=== PATIENT | female | born 1965 | race Caucasian/White ===

== ENCOUNTER 2019-10-03 14:34 | Emergency (ER) | payer OTHER, SELFPAY ==
[2019-10-03 14:43] VITALS: BP 159/92; PULSE 78; RESP 16; TEMP 36.5; O2SAT 98
--- NOTE | 2019-10-03 15:05 | ED.URI ---
HPI - URI/Sore Throat General Chief Complaint: Upper Respiratory Infection Stated Complaint: head congestion/cough Time Seen by Provider: 10/03/19 14:50 Source: patient and RN notes reviewed Mode of arrival: ambulatory Limitations: no limitations History of Present Illness HPI Narrative: Patient presents today with a 2-day history of nasal congestion and cough. States symptoms began when she was outside in her yard. Reports the congestion is better today, but the cough is worse. On her way to the urgent care today, she got a flat tire. Reports her cough worsened as she was sitting in her car with the windows rolled down. Denies history of seasonal allergies. Denies any history of asthma or COPD. Denies any history of fever, shortness of breath, sore throat, loss of taste or smell. She has been taking Mucinex without relief. States her mother is undergoing chemo and she has a grandchild without an immune system and is requesting COVID-19 testing today. MD elicited complaint: cough Related Data Home Medications Medication Instructions Recorded Confirmed No Home Medications 10/03/19 10/03/19 Allergies Allergy/AdvReac Type Severity Reaction Status Date / Time Sulfa (Sulfonamide Allergy Unknown Verified 10/03/19 14:42 Antibiotics) Review of Systems Review of Systems: Narrative: CONSTITUTIONAL: Denies body aches, fever, chills, or sweats. EYES: Denies visual changes, redness, or discharge. ENT: Denies rhinorrhea, sore throat, or otalgia.+ Congestion, postnasal drip CARDIOVASCULAR: Denies chest pain, palpitations, or edema. RESPIRATORY: Denies dyspnea.+ Cough GASTROINTESTINAL: Denies abdominal pain, nausea, vomiting, or diarrhea. GENITOURINARY: Denies dysuria or hematuria. SKIN: Denies rash, itching, or wounds. MUSCULOSKELETAL: Denies back pain, joint pain, or myalgia. NEUROLOGIC: Denies headache, numbness, tingling, or weakness. PSYCH: Denies depression or anxiety. PMFSH Comments At time of signature, I have reviewed and agree with nursing past medical, surgical, social and family history unless otherwise noted. Please see nursing chart for further information. There is no relevant family history pertinent to the presenting complaint Exam Narrative: Exam Narrative: GENERAL: Well-appearing, well-nourished, and in no acute distress. HEAD: Normocephalic, atraumatic. EYES: EOMI. No redness or drainage. Conjunctivae normal. ENT: Mucous membranes pink and moist. Nares congested with clear drainage. Bilateral swollen nasal turbinates. Bilateral middle ear fluid collection without evidence of infection. Throat normal. Uvula midline. NECK: Normal AROM. Supple. No lymphadenopathy. CHEST: No respiratory distress. Clear to auscultation. HEART: Regular rate and rhythm. No murmur appreciated. Normal peripheral pulses. EXTREMITIES: Normal range of motion. No edema. SKIN: Warm, dry, no rash. Capillary refill normal. Normal skin turgor. NEURO: No focal deficits. Alert and oriented x3. Gait steady. PSYCH: Normal affect. No signs of depression or anxiety. Course Vital Signs Vital signs: Vital Signs Temperature 97.7 F 10/03/19 14:43 Pulse Rate 78 10/03/19 14:43 Respiratory Rate 16 10/03/19 14:43 Blood Pressure 159/92 H 10/03/19 14:43 Pulse Oximetry 98 10/03/19 14:43 Temperature 97.7 F 10/03/19 14:43 Pulse Rate 78 10/03/19 14:43 Respiratory Rate 16 10/03/19 14:43 Blood Pressure 159/92 H 10/03/19 14:43 Pulse Oximetry 98 10/03/19 14:43 Reviewed. Pt has been instructed to follow up with her PCP regarding her elevated blood pressure today. MDM - URI/Sore Throat Differential Diagnosis Differential diagnosis: Likely upper respiratory infection, otitis media, sinusitis, viral infection, bronchitis and other (Seasonal allergies, allergic rhinitis) Critical Care Time Critical Care Time Critical Care Time: No Discharge Plan Discharge Clinical Impression: Seasonal allergies
== END 2019-10-03 15:11 | disposition home or self-care (01) ==
PROVIDERS: Emergency Provider Nurse Practitioner; PCP Internal Medicine
DX: J30.2 Other seasonal allergic rhinitis (principal); Z20.828 Contact with and (suspected) exposure to other viral communicable diseases
CPT/HCPCS: 99211; G0463

== ENCOUNTER 2024-05-25 02:16 | Day surgery (SDC) | payer OTHER, SELFPAY ==
[2024-05-17 13:55] VITALS: BMI 34.9
--- OUTSIDE RECORDS SUMMARY | 2024-05-25 02:21 | XMS_ITS | Clinical Summary ---
Author Organization [facility] Address [facility] [place] [address] Care Team Providers Care Sales Solutions Associate Name Role Phone Randa Garnett Primary Care Provider [phone] Allergies Active Allergy Reactions Criticality Noted Date Comments Sulfa Antibiotics Rash Low 03/29/2019 Medications amLODIPine-purnima zepril 5-20 MG capsule Take 1 capsule by mouth daily. 07/22/2021 Active pravastatin 20 MG tablet Take 20 mg by mouth nightly at bedtime. 07/12/2021 Active Active Problems Problem Noted Date Diagnosed Date Essential (primary) hypertension 09/14/2021 Hyperlipidemia, mixed 09/14/2021 Encounters Date Type Department Care Team Description 04/30/2024 3:16 PM PROTECTIVE SIGNAL REPAIRER - 04/30/2024 11:59 PM [facility] Hospital Encounter [facility] [address] [place] [address] Randa Garnett PA Discharge Disposition: Home or Self Care (Routine Discharge) 04/30/2024 Travel from Last 3 Months Family History Medical History Relation Comments Heart Attack Father Open Heart Father Valve Disease Father cardiac stents Father Breast Cancer Neg Hx Relation Status Comments Father Alive Maternal Grandfather Maternal Grandmother Mother Alive Paternal Grandfather Paternal Grandmother Sister Alive Social History Tobacco Use Types Packs/Day Years Used Date Smoking Tobacco: Never Smokeless Tobacco: Never Alcohol Use Standard Drinks/Week Comments Yes 5 (1 standard drink = 0.6 oz pur e alcohol) socially Comments No Sex and Gender Information Value Date Recorded Sex Assigned at Not on file Legal Sex Female 8:02 AM CDT Gender Identity Not on file Sexual Orientation Not on file Last Filed Vital Signs Vital Sign Reading Time Taken Comments Blood Pressure 156/100 09/14/2021 11:23 AM CDT Pulse 94 09/14/2021 11:23 AM CDT Temperature 36.3 C (97.4 F) 07/29/2021 5:18 AM CDT Respiratory Rate 16 07/29/2021 7:00 AM CDT Oxygen Saturation 96% 07/29/2021 7:00 AM CDT Inhaled Oxygen Concentration - - Weight 87.1 kg (192 lb) 09/14/2021 11:23 AM CDT Height 157.5 cm (5' 2 ) 09/14/2021 11:23 AM CDT Body Mass Index 35.12 09/14/2021 11:23 AM CDT Plan of Treatment Health Maintenance Due Date Last Done Comments Cervical Cancer Screening Pap Smear (Age 30 to 64) Every 3 Years 1963 Colorectal Cancer Screening Colonoscopy (10 Years) 1963 Annual Physical 12/25/1966 Hepatitis C 12/25/1981 DTaP, Tdap and Td Vaccines (1 - Tdap) 12/25/1982 Cervical Cancer Screening Pap with HPV Testing (Age 30 to 64) Every 5 Years 12/25/1993 Cervical Cancer Screening with HPV 12/25/1993 Zoster Vaccines (1 of 2) 12/25/2013 COVID-19 Vaccine (3 season) 2023 07/18/2020, 06/27/2020 Influenza Adult (#1) 2023 01/20/2020 Mammogram Screening 04/30/2026 04/30/2024, 04/29/2023, 02/17/2022, Additional history exists RSV Immunization or 60+ Years (1 - 1-dose 75+ series) 12/25/2038 Meningococcal B Vaccine Aged Out No l onger eligible based on patient's age to complete this topic Meningococcal Vaccine Aged Out No estevan dante eligible based on patient's age to complete this topic Pneumococcal Vaccine: Pediatrics (0 to 5 Years) and At-Risk Patients (6 to 64 Years) Aged Out No longer eligible based on patient's age to complete this topic RSV Immunizations Under 20 Months Aged Out No longer eligible based on patient's age to complete this topic Procedures Procedure Name Priority Date/Time Associated Diagnosis Comments MG SCREENING W ANTOINETTE DUSTY DIGI Routine 04/30/2024 3:53 PM PROTECTIVE SIGNAL REPAIRER Encounter for screening mammogram for malignant neoplasm of breast from Last 3 Months Results * MG SCREENING W ANTOINETTE DUSTY DIGI (04/30/2024 3:53 PM PROTECTIVE SIGNAL REPAIRER) Anatomical Region Laterality Modality Breast Bilateral Mammography 05/01/2024 3:59 PM PROTECTIVE SIGNAL REPAIRER Impressions 05/01/2024 4:16 PM PROTECTIVE SIGNAL REPAIRER ===== IMPRESSION: ===== 1. Stable mammographic appearance with no new findings to suggest malignancy in either breast. Assessment: ACR BI-RADS 1 - NEGATIVE Recommendation: 1:Routine Screening Bilateral Comments: Ordered By: RANDA GARNETT Interpreted By: Neo Oneill, 05/01/2024 3:59 PM Narrative 05/01/2024 4:16 PM PROTECTIVE SIGNAL REPAIRER [facility] [address] [place] [address] EXAMINATION: Digital bilateral screening mammogram with 3-D tomosynthesis EXAM DATE/TIME: 04/30/2024 3:25 PM REASON FOR EXAM: yealry screen COMPARISON: 02/17/2022. 04/29/2023 Technique: Digital screening mammography of both breasts was performed in addition to 3-D Tomosynthesis technique. This study was read with the assistance of a computer-aided detection system. Tissue density: The breasts are almost entirely fatty. Findings: There is no new focal asymmetry, dominant mass lesion, area of skin thickening, or cluster of suspicious appearing calcifications in either breast to suggest malignancy. Stable benign lymph node in upper outer quadrant of the right breast Randa [facility]D M[facility] Final Result from Last 3 Months Insurance [facility] Care Teams Sales Solutions Associate Relationship Specialty Start Date End Date Randa Garnett PA [address] [place] [id number] PCP - General PHYSICIAN PAPERHANGER 02/17/22
--- OUTSIDE RECORDS SUMMARY | 2024-05-25 02:21 | XMS_ITS | Encounter Summary ---
Author Organization [facility] Address [address] [place] [id number] Care Team Providers Care Reuse Technician Name Role Phone Michael Alexander MD Primary Care Provider [phone] Randa Garnett Primary Care Provider Encounter Details Date Type Department Care Team (Late st Contact Info) Description 08/13/2021 [facility] [address] [place] Castro [place] Social History Tobacco Use Types Packs/Day Years Used Date Smoking Tobacco: Never Smokeless Tobacco: Never Alcohol Use Standard Drinks/Week Comments Yes 0 (1 standard drink = 0.6 oz pur e alcohol) socially Comments No Sex and Gender Information Value Date Recorded Sex Assigned at Not on file Legal Sex Female 8:02 AM CDT Gender Identity Not on file Sexual Orientation Not on file COVID-19 Exposure Response Date Recorded In the last 10 days, have yo u been in contact with someone who was confirmed or suspected to have Coronavirus/COVID-19? No / Unsure 07/29/2021 5:15 AM CDT documented as of this encounter Plan of Treatment Not on file documented as of this encounter Procedures Procedure Name Priority Date/Time Associated Diagnosis Comments CBC (OUTSIDE LAB) Routine 07/13/2021 VITAMIN B-12 Routine 07/13/2021 COMPREHENSIVE METABOLIC PANEL Routine 07/13/2021 THYROID STIM HORMONE TSH Routine 07/13/2021 documented in this encounter Results * VITAMIN B-12 (07/13/2021) VITAMIN B12 S/P/B 288 07/13/2021 [facility] Final Result * CBC (OUTSIDE LAB) (07/13/2021) WBC 5.0 HGB 14.5 HCT 44.6 PLT 263 07/13/2021 [facility]-OUTSIDE/ABSTRACTED Final Result * THYROID STIM HORMONE, TSH (07/13/2021) TSH 2.71 07/13/2021 [facility] Final Result * (ABNORMAL) COMPREHENSIVE METABOLIC PANEL (07/13/2021) SODIUM S/P/B 141 POTASSIUM S/P/B 4.5 CO2 28 CHLORIDE S/P/B 104 GLUCOSE 93 mg/dL CALCIUM S/P/B 9.6 BUN 10 CREATININE S/P/B 0.76 0.5 - 1.0 EGFR AFR. AMER. 101(A) <=90 EGFR NON-AFR. AMER. 87 <=90 ALKALINE PHOSPHATASE S/P/B 95 ALT 30 AST 23 BILIRUBIN TOTAL S/P/B 0.6 ALBUMIN S/P/B 4.3 3.5 - 5.0 TOTAL PROTEIN S/P/B 7.2 GLOBULIN 2.9 07/13/2021 [facility] Final Result documented in this encounter Visit Diagnoses Not on filedocumented in this encounter Care Teams Reuse Technician Relationship Specialty Start Date End Date Michael Alexander MD [address] [place] [id number] PCP - General INTERNAL MEDICINE 01/01/19 02/16/22 Randa Garnett PA [address] [place] [id number] PCP - General PHYSICIAN PER DIEM INTERPRETER 02/17/22 documented as of this encounter
[2024-05-25 06:18] VITALS: BP 135/70; PULSE 83; RESP 18; TEMP 36.4; O2SAT 98
[2024-05-25 06:20] VITALS: BMI 35.6
[2024-05-25] MEDS: LACTATED RINGERS 1,000 ML 150 ML IV CONT (06:28)
--- NOTE | 2024-05-25 07:08 | P.PNAN_ITS ---
Anes - Initial Pre Proc Eval Procedure: Operation Date: 05/25/24 07:30 Proposed Procedures p Screening Colonoscopy - Isiah Arndt MD Date/Time: 05/25/24 07:08 Surgeon: Isiah Arndt MD Pre Op Diagnosis: Neoplasm screening Patient Data Age: 58 Gender: F Height: 1.57 m Weight: 88.4 kg Last Vital Signs Temp 97.6 F 05/25/24 06:18 Pulse 83 05/25/24 06:18 Resp 18 05/25/24 06:18 BP 135/70 05/25/24 06:18 Pulse Ox 98 05/25/24 06:18 O2 Del Method Room Air 05/25/24 06:18 Allergies Allergy/AdvReac Type Severity Reaction Status Date / Time Sulfa (Sulfonamide Allergy Unknown Hives Verified 05/17/24 13:54 Antibiotics) Home Medications ?Medication ?Instructions ?Recorded ?Confirmed ?Type cyanocobalamin (vitamin B-12) 500 500 mcg PO DAILY 09/12/23 05/25/24 History mcg tablet amlodipine 5 mg-benazepril 20 mg 1 cap PO DAILY #90 caps 05/11/24 05/25/24 Rx capsule pravastatin 40 mg tablet 40 mg PO QHS #90 tabs 05/11/24 05/25/24 Rx sodium sul 1.479 gram-potas ch See Rx Instructions PO .COMPLEX 05/17/24 Rx 0.188 gram-magnes sul 0.225 gram #24 tabs tablet (Sutab) Patient hx anesthesia problems: none Family hx anesthesia problems: none Results Review: All pre-operative results and documents have been reviewed as part of the pre- operative evaluation. [facility] Past Medical History Medical History Goiter HTN (hypertension) Hypercholesteremia Surgical History Surgical History No pertinent past surgical history Social History Social History Smoking status: Never smoker Alcohol intake: current Drinks per week: 1 Alcohol use details: causual Substance use: never Substance use type: does not use Living arrangements: with family Occupation/Education: occupation Gender identity (if verbalized by the patient): Female Anes - Eval Final PreProcedure Day of Procedure 05/25/24 07:08 Patient weight: obese Lungs: normal air movement Airway: Mallampati scale class II Neurological: alert and oriented Last oral intake: >/= 8 hours ASA classification: III Emergent: no Anesthetic plan: proceed Anesthesia type and monitoring: general GIVS and standard monitoring Results Review: All pre-operative results and documents have been reviewed as part of the pre- operative evaluation. HTN, hyperlipidemia, BMI 35. Informed Consent: The patient's anesthetic plan and its attendant risks and benefits were discussed with the patient/family/POA. Questions were solicited and answers provided to the satisfaction of the patient/family/POA.
--- NOTE | 2024-05-25 07:19 | PM.HPGS ---
History of Present Illness History of Present Illness Consent: Risks, benefits, and alternatives have been discussed and questions answered. Patient agrees to proceed with procedure. Chief complaint: Neoplasm screening Narrative: Nell Domingo is a 58 year old female here for screening colonoscopy, last one about 11 years ago Review of Systems Review of Systems: All systems reviewed & are unremarkable except as noted in HPI and below PMFSH Past Medical History Medical History (Updated 05/25/24 @ 07:19 by Isiah Arndt MD) Colon cancer screening Goiter HTN (hypertension) Hypercholesteremia Surgical History Surgical History No pertinent past surgical history Social History Social History Smoking status: Never smoker Alcohol intake: current Drinks per week: 1 Alcohol use details: causual Substance use: never Substance use type: does not use Living arrangements: with family Occupation/Education: occupation Gender identity (if verbalized by the patient): Female Meds Home Medications and Allergies Home Medications ?Medication ?Instructions ?Recorded ?Confirmed ?Type cyanocobalamin (vitamin B-12) 500 500 mcg PO DAILY 09/12/23 05/25/24 History mcg tablet amlodipine 5 mg-benazepril 20 mg 1 cap PO DAILY #90 caps 05/11/24 05/25/24 Rx capsule pravastatin 40 mg tablet 40 mg PO QHS #90 tabs 05/11/24 05/25/24 Rx sodium sul 1.479 gram-potas ch See Rx Instructions PO .COMPLEX 05/17/24 Rx 0.188 gram-magnes sul 0.225 gram #24 tabs tablet (Sutab) Allergies Allergy/AdvReac Type Severity Reaction Status Date / Time Sulfa (Sulfonamide Allergy Unknown Hives Verified 05/17/24 13:54 Antibiotics) Vital Signs Vital Signs - 24 hr 05/25/24 06:18 Temperature 97.6 F Pulse Rate 83 Respiratory Rate 18 Blood Pressure 135/70 Pulse Oximetry 98 Oxygen Delivery Room Air Exam Const: General: comfortable and no acute distress HENMT: Face/Nose/Sinus: Normal nares present Eyes: General: appearance normal, both eyes and all related structures Neck: Neck: no JVD Resp: Auscultation: clear to auscultation bilaterally Cardio: Rate: regular rate Rhythm: regular rhythm GI: Inspection: non-distended GI Palp: Yes Soft to palpation Skin: General skin exam: normal color Neuro: Speech: normal speech Extrem: General: normal to inspection Psych: Mental Status: mental status grossly normal Assessment and Plan Assessment and plan (1) Colon cancer screening: Code(s): Z12.11 - Encounter for screening for malignant neoplasm of colon Status: Acute Assessment and Plan: colonoscopy
[2024-05-25 07:37] VITALS: BP 117/75; PULSE 59; RESP 25; O2SAT 97
[2024-05-25 07:47] VITALS: BP 108/67; PULSE 60; RESP 25; O2SAT 99
[2024-05-25 07:57] VITALS: BP 115/68; PULSE 47; RESP 15; O2SAT 100
== END 2024-05-25 08:02 | disposition home or self-care (01) ==
PROVIDERS: PCP Physician Assistant Medical; Referring Provider Physician Assistant Medical; Visit Provider Internal Medicine Gastroenterology
PROC: 0DJD8ZZ Inspection of Lower Intestinal Tract, Via Natural or Artificial Opening Endoscopic (ICD-10-PCS; CPT 45378; principal; 2024-05-25 07:30)
DX: Z12.11 Encounter for screening for malignant neoplasm of colon (principal); K57.30 Diverticulosis of large intestine without perforation or abscess without bleeding; K64.4 Residual hemorrhoidal skin tags; E66.9 Obesity, unspecified; Z68.35 Body mass index [BMI] 35.0-35.9, adult
CPT/HCPCS: 45378; J2704; J7120